=== PATIENT | male | born 1940 | race Caucasian/White ===

== ENCOUNTER 2021-03-04 13:14 | Emergency (ER) | payer MEDICARE ==
[~2021-03-04 13:14] MED LIST: PREDNISONE20 MG PO
[2021-03-04 14:50] LABS: HEMOGLOBIN 11.7 gm/dl (14.0-17.5); RED BLOOD COUNT 3.81 M/UL (4.20-5.50); WHITE BLOOD COUNT 5.4 K/UL (4.5-11.0)
[2021-03-04] MEDS ORDERED: ZOFRAN4 MG PO (16:33)
[2021-03-04] MEDS ORDERED: DELSYM30 MG/5 ML PO (16:33)
== END 2021-03-04 17:00 | disposition home or self-care (01) ==
LOC: ER1 13:14
PROVIDERS: Physician Assistant Medical
DX: U07.1 COVID-19 (principal); E03.9 Hypothyroidism, unspecified; Z95.0 Presence of cardiac pacemaker; Z88.8 Allergy status to other drugs, medicaments and biological substances
CPT/HCPCS: 71045; 80053; 82550; 82553; 83874; 84484; 85025; 93005; 99284; J7030; U0002

== ENCOUNTER 2021-08-14 11:00 | Emergency (ER) | payer MEDICARE ==
[~2021-08-14 11:00] MED LIST changes: +DELSYM30 MG/5 ML PO; +ZOFRAN4 MG PO
[2021-08-14] MEDS ORDERED: FLONASE 0.05% N16 GM (11:39)
[2021-08-14] MEDS ORDERED: SALINE NOSE SPR45 ML (11:39)
== END 2021-08-14 11:50 | disposition home or self-care (01) ==
LOC: ER1 11:00
DX: J31.0 Chronic rhinitis (principal); E07.9 Disorder of thyroid, unspecified
CPT/HCPCS: 99283

== ENCOUNTER 2022-02-16 07:46 | Emergency (ER) | payer MEDICARE ==
[~2022-02-16 07:46] MED LIST changes: +FLONASE 0.05% N16 GM; +SALINE NOSE SPR45 ML
[2022-02-16 09:27] LABS: HEMOGLOBIN 11.9 gm/dl (14.0-17.5); RED BLOOD COUNT 3.98 M/UL (4.20-5.50); WHITE BLOOD COUNT 9.2 K/UL (4.5-11.0)
[2022-02-16] MEDS ORDERED: HYDROCODON-ACE1 EAC4 PO (10:27)
== END 2022-02-16 12:08 | disposition home or self-care (01) ==
LOC: ER1 07:46
PROVIDERS: Family Medicine
DX: S32.591A Other specified fracture of right pubis, initial encounter for closed fracture (principal); N18.9 Chronic kidney disease, unspecified; Z95.0 Presence of cardiac pacemaker; Z88.8 Allergy status to other drugs, medicaments and biological substances; W19.XXXA Unspecified fall, initial encounter
CPT/HCPCS: 72192; 80053; 82550; 82553; 84484; 85025; 93005; 99284

== ENCOUNTER 2022-02-21 04:18 | Emergency (ER) | payer MEDICARE ==
[~2022-02-21 04:18] MED LIST changes: +HYDROCODON-ACE1 EAC4 PO
== END 2022-02-21 06:00 | disposition home or self-care (01) ==
LOC: ER1 04:18
DX: S32.591A Other specified fracture of right pubis, initial encounter for closed fracture (principal); I51.9 Heart disease, unspecified; Z88.8 Allergy status to other drugs, medicaments and biological substances; Z79.82 Long term (current) use of aspirin; W19.XXXA Unspecified fall, initial encounter
CPT/HCPCS: 99283

== ENCOUNTER 2022-05-02 21:32 | Emergency (ER) | payer MEDICARE ==
[~2022-05-02] VITALS: Ht 180.3 cm; Wt 68.0 kg
[2022-05-02 23:09] LABS: HEMOGLOBIN 11.2 gm/dl (14.0-17.5); RED BLOOD COUNT 3.79 M/UL (4.20-5.50); WHITE BLOOD COUNT 6.8 K/UL (4.5-11.0)
[2022-05-04 07:21] LABS: HEMOGLOBIN 10.9 gm/dl (14.0-17.5); RED BLOOD COUNT 3.79 M/UL (4.20-5.50)
[2022-05-04 08:56] LABS: BUN/CREATININE RATIO 14 (0-10)
[2022-05-04] MEDS ORDERED: SYNTHROID25 MCG PO (10:17)
[2022-05-04] MEDS ORDERED: ASPIRIN EC81 MG PO (10:18)
[2022-05-04] MEDS ORDERED: LORATADINE10 MG PO (10:18)
[2022-05-04] MEDS ORDERED: FLONASE 0.05% N16 GM (10:18)
[2022-05-04] MEDS ORDERED: MONODOX100 MG PO (14:53)
== END 2022-05-04 15:16 | disposition home or self-care (01) ==
LOC: ER1 21:32
PROVIDERS: Emergency Medicine; Physician Assistant Medical
DX: R04.2 Hemoptysis (principal); I49.5 Sick sinus syndrome; N18.9 Chronic kidney disease, unspecified; R59.0 Localized enlarged lymph nodes; R91.8 Other nonspecific abnormal finding of lung field; E03.9 Hypothyroidism, unspecified; Z95.0 Presence of cardiac pacemaker; Z85.46 Personal history of malignant neoplasm of prostate; Z88.8 Allergy status to other drugs, medicaments and biological substances; Z20.822 Contact with and (suspected) exposure to COVID-19
CPT/HCPCS: 71046; 80048; 80053; 80202; 83735; 85025; 85027; 85610; 85730; 96374; 96375; 96376; 99285; J0696; J2543; J3370; J7070; Q9967; U0002